=== PATIENT | female | born 1970 | race Caucasian/White ===

== ENCOUNTER → 2017-02-03 | Outpatient (CLI) | payer SELFPAY ==
[~2017-02-03] MED LIST: ALBUTEROL17 GM; ALBUTEROL17 GM INH; BACTRIM DS TABL1 TA1; HYCODAN60 ML 5MG/; HYCODAN60 ML 5MG/ PO; MEDROL4 MG/DOSE-; NO MEDICATIONS; PREDNISONE PO; ZITHROMAX PO
== END | disposition home or self-care (01) ==
LOC: CBAR 10:06
DX: E66.01 Morbid (severe) obesity due to excess calories (principal)
CPT/HCPCS: 76000